=== PATIENT | female | born 1945 | race Caucasian/White ===

== ENCOUNTER 2016-11-29 09:17 | Inpatient (IN) | payer OTHER, MEDICARE ==
[2016-11-29] VITALS (9 sets, daily range): BP systolic 82–193; BP diastolic 56–110; PULSE 75–95; RESP 16–20; TEMP 97.5–99.3; O2SAT 92–99
[~2016-11-29] VITALS: Ht 167.6 cm; Wt 43.0 kg
[~2016-11-29 09:17] MED LIST: BACT800T5 PO; CEPH500C3 PO; GABA100C4 PO; IBUP800 PO; METH4PAK PO; NEUR100C PO; ZOLO50TA PO
--- NOTE | 2016-11-29 09:39 | PD ---
HPI Chief Complaint: Hip Injury Time Seen by Provider: 09:30 Travel History International Travel<30 days: No Contact w/Intl Traveler<30days: No Traveled to known affect area: No History of Present Illness HPI Patient is a 71-year-old female who presents emergency department via EMS for left hip pain. The patient states she was walking her dog last night and the family room, when she tripped and fell. The patient landed on her left side and was unable to ambulate after the fall. The patient states she was able to crawl to the door this morning where she banged on the door and some bystanders helped her. The patient states she is unable to straighten her left lower extremity or bear weight on the left leg. The patient does have a history of previous right hip fracture which she states was fixed by Dr. Rojas. The patient denies any head trauma or loss of consciousness with the fall. The patient denies any current headache, neck pain, chest pain, short of breath, nausea, vomiting, or abdominal pain. The patient does complain of left hip pain that radiates into the left leg, moderate, worse with movement, and mildly alleviated with morphine 4 mg intravenously prior to arrival. The patient states her primary physician is Dr. Goldstein. [facility] Past Medical History Hx Anticoagulant Therapy: No Anxiety: Yes Cancer: No Cardiovascular Problems: No Diabetes: No Diminished Hearing: No Glaucoma: No Hepatitis: No Hiatal Hernia: No Hypertension: Yes Musculoskeletal: Yes (FX CLAVICLE) Neurologic: Yes (MULTIPLE SCLEROSIS) Respiratory: No Thyroid Disease: No ?: Not Menopausal: Yes : 4 Para: 2 : 2 Tubal Ligation: Yes Past Surgical History Abdominal Surgery: Yes (ABDOMINAL HERNIA REPAIR) Cardiac Surgery: No Ear Surgery: No Endocrine Surgery: No Eye Surgery: Yes (LEFT EYE CATARACT EXTRACT) Genitourinary Surgery: No Gynecologic Surgery: Yes (TUBAL LIGATION) Neurologic Surgery: No Oral Surgery: No Pacemaker: No Thoracic Surgery: No Tonsillectomy: Yes Other Surgery: Yes Social History Alcohol Use: Yes (WINE 3 GLASSES DAILY) Tobacco Use: No Substance Use: No Allergies-Medications (Allergen,Severity, Reaction): Coded Allergies: No Known Allergies (Verified , 11/29/16) Reported Meds & Prescriptions Reported Meds & Active Scripts Active Reported Pred Forte Opth Drops (Prednisolone Acetate Opth Drops) 1% Susp 1 Drop RIGHT EYE QID Boniva (Ibandronate Sodium) 150 Mg Tab 150 Mg PO MONTHLY Buspirone (Buspirone HCl) 5 Mg Tab 5 Mg PO DAILY Synthroid (Levothyroxine Sodium) 125 Mcg Tab 125 Mcg PO DAILY Gabapentin 100 Mg Cap 100 Mg PO TID Zoloft (Sertraline HCl) 50 Mg Tab 50 Mg PO DAILY Review of Systems Except as stated in HPI: all other systems reviewed are Neg General / Constitutional: No: Fever Eyes: Positive: 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 SKIN: Focused skin assessment warm/dry. HEAD: Atraumatic. Normocephalic. EYES: Left pupil is 3 mm and reactive. The right eye has a glaze appearance, she is unable to see out of the right eye. ENT: No nasal bleeding or discharge. Mucous membranes pink and moist. NECK: Trachea midline. No JVD. CARDIOVASCULAR: Regular rate and rhythm. No murmur appreciated. RESPIRATORY: No accessory muscle use. Clear to auscultation. Breath sounds equal bilaterally. GASTROINTESTINAL: Abdomen soft, non-tender, nondistended. No rebound tenderness. MUSCULOSKELETAL: The left lower extremity shortened and externally rotated. Positive dorsalis pedal pulses bilateral. The patient is able to move the feet bilaterally. NEUROLOGICAL: Awake and alert. No obvious cranial nerve deficits. Motor grossly within normal limits. Normal speech. A note 4. Follows commands. Sensation is intact left lower extremity. PSYCHIATRIC: Appropriate mood and affect; insight and judgment normal. Data Data Last Documented VS Vital Signs Date Time Temp Pulse Resp B/P Pulse Ox O2 Delivery O2 Flow Rate FiO2 11/29/16 10:30 79 18 145/79 98 Nasal Cannula 2 11/29/16 09:25 97.5 Orders Electrocardiogram (11/29/16 09:31) Complete Blood Count With Diff (11/29/16 09:31) Comprehensive Metabolic Panel (11/29/16 09:31) Prothrombin Time / Inr (Pt) (11/29/16:31) Act Partial Throm Time (Ptt) (11/29/16:31) Urinalysis - C+S If Indicated (11/29/16:31) Type And Screen (11/29/16:31) Chest, Single Ap (11/29/16:31) Hip, Uni(Ap&Lat) W Ap Pelvis (11/29/16:31) Iv Access Insert/Monitor (11/29/16:31) Urinary Catheter Insert/Apply (11/29/16:31) Oximetry (11/29/16:31) Ice/Cold Pack (11/29/16:) Ecg Monitoring (11/29/16:31) Morphine Inj (Morphine Inj) (11/29/16 09:45) Ondansetron Inj (Zofran Inj) (11/29/16 09:45) Sodium Chloride 0.9% Flush (Ns Flush) (11/29/16 09:45) Sodium Chlor 0.9% 1000 Ml Inj (Ns 1000 M (11/29/16 09:45) Buspirone (Buspar) (11/30/16 09:00) Gabapentin (Neurontin) (11/29/16 13:00) Levothyroxine (Synthroid) (11/30/16 09:00) Sertraline (Zoloft) (11/30/16 09:00) Admit Order (Ed Use Only) (11/29/16 10:44) Labs Laboratory Tests Test 11/29/16 11/29/16 09:45 10:00 White Blood Count 9.7 TH/MM3 Red Blood Count 3.95 MIL/MM3 Hemoglobin 13.0 GM/DL Hematocrit 38.3 % Mean Corpuscular Volume 97.1 FL Mean Corpuscular Hemoglobin 33.0 PG Mean Corpuscular Hemoglobin 33.9 % Concent Red Cell Distribution Width 13.4 % Platelet Count 236 TH/MM3 Mean Platelet Volume 8.9 FL Neutrophils (%) (Auto) 72.1 % Lymphocytes (%) (Auto) 13.8 % Monocytes (%) (Auto) 13.5 % Eosinophils (%) (Auto) 0.1 % Basophils (%) (Auto) 0.5 % Neutrophils # (Auto) 7.0 TH/MM3 Lymphocytes # (Auto) 1.3 TH/MM3 Monocytes # (Auto) 1.3 TH/MM3 Eosinophils # (Auto) 0.0 TH/MM3 Basophils # (Auto) 0.0 TH/MM3 CBC Comment DIFF FINAL Differential Comment Prothrombin Time 10.6 SEC Prothromb Time International 1.0 RATIO Ratio Activated Partial 21.9 SEC Thromboplast Time Blood Type A POSITIVE Antibody Screen NEGATIVE Blood Bank Comment Urine Color YELLOW Urine Turbidity CLEAR Urine pH 5.0 Urine Specific [place] 1.016 Urine Protein TRACE mg/dL Urine Glucose (UA) NEG mg/dL Urine Ketones TRACE mg/dL Urine Occult Blood NEG Urine Nitrite NEG Urine Bilirubin NEG Urine Urobilinogen LESS THAN 2.0 MG/DL Urine Leukocyte Esterase NEG Urine RBC LESS THAN 1 /hpf Urine WBC 1 /hpf Microscopic Urinalysis Comment CATH-CULT NOT IND MDM Medical Decision Making Medical Screen Exam Complete: Yes Emergency Medical Condition: Yes Medical Record Reviewed: Yes Interpretation(s) EKG reveals normal sinus rhythm with a rate of 76. No ischemic changes or ectopy noted. Last Impressions Hip and Pelvis X-Ray 11/29/16930 Signed Impressions: Service Date/Time: Tuesday, November 29, 2016 09:56 - CONCLUSION: Comminuted left femoral fracture. Ciro Joseph MD Chest X-Ray 11/29/16930 Signed Impressions: Service Date/Time: Tuesday, November 29, 2016 09:56 - CONCLUSION: No acute disease. Ciro Joseph MD Laboratory Tests Test 11/29/16 11/29/16 09:45 10:00 White Blood Count 9.7 TH/MM3 Red Blood Count 3.95 MIL/MM3 Hemoglobin 13.0 GM/DL Hematocrit 38.3 % Mean Corpuscular Volume 97.1 FL Mean Corpuscular Hemoglobin 33.0 PG Mean Corpuscular Hemoglobin 33.9 % Concent Red Cell Distribution Width 13.4 % Platelet Count 236 TH/MM3 Mean Platelet Volume 8.9 FL Neutrophils (%) (Auto) 72.1 % Lymphocytes (%) (Auto) 13.8 % Monocytes (%) (Auto) 13.5 % Eosinophils (%) (Auto) 0.1 % Basophils (%) (Auto) 0.5 % Neutrophils # (Auto) 7.0 TH/MM3 Lymphocytes # (Auto) 1.3 TH/MM3 Monocytes # (Auto) 1.3 TH/MM3 Eosinophils # (Auto) 0.0 TH/MM3 Basophils # (Auto) 0.0 TH/MM3 CBC Comment DIFF FINAL Differential Comment Prothrombin Time 10.6 SEC Prothromb Time International 1.0 RATIO Ratio Activated Partial 21.9 SEC Thromboplast Time Blood Type A POSITIVE Antibody Screen NEGATIVE Blood Bank Comment Urine Color YELLOW Urine Turbidity CLEAR Urine pH 5.0 Urine Specific [place] 1.016 Urine Protein TRACE mg/dL Urine Glucose (UA) NEG mg/dL Urine Ketones TRACE mg/dL Urine Occult Blood NEG Urine Nitrite NEG Urine Bilirubin NEG Urine Urobilinogen LESS THAN 2.0 MG/DL Urine Leukocyte Esterase NEG Urine RBC LESS THAN 1 /hpf Urine WBC 1 /hpf Microscopic Urinalysis Comment CATH-CULT NOT IND Differential Diagnosis Differential diagnosis includes hip fracture, pelvic fracture, hip dislocation, hip contusion, femur fracture, mechanical fall, syncope. Narrative Course IV was established, labs are drawn and sent, and the patient was placed on cardiac telemetry monitoring and continuous pulse oximetry monitoring. EKG was ordered and interpreted. Chest x-ray and pelvis x-ray/left hip x-ray were obtained. The patient was administered morphine and Zofran intravenously with IV fluids. X-ray of the left hip reveals a fracture of the proximal left femur at the level of the trochanters. Chest x-rays unremarkable. A call was placed to the patient's orthopedic surgeon, Dr. Rojas, as well as [facility] ([place], [place])ist for admission. I discussed the patient Dr. Giordano who agrees with admission. The patient was reevaluated at 10:40 AM, her her left hip pain has significantly improved. Physician Communication Physician Communication I discussed the patient Dr. Giordano who agrees with admission. Diagnosis Primary Impression: Closed left hip fracture Qualified Code: S72.002A - Closed left hip fracture, initial encounter Admitting Information Admitting Physician Requests: Admit Condition: Stable Francis Granados MD Nov 29, 2016 09:38
[2016-11-29] MEDS: SODIUM CHLORIDE 0.9% FLUSH 10 ML FLUSH IVF PRN ×3 (09:42→22:57)
[2016-11-29] MEDS ORDERED: MORPHINE SULFATE 4 MG/ML INJ IV PUSH ONE (09:45)
[2016-11-29] MEDS ORDERED: SODIUM CHLOR 0.9% 1000 ML INJ 1,000 ML IV SCH (09:45)
[2016-11-29] MEDS ORDERED: ONDANSETRON HCL 4 MG/2 ML VIAL IVP ONE (09:45)
[2016-11-29] MEDS ORDERED: BUSP5TAB PO (09:50)
[2016-11-29] MEDS ORDERED: LEVO.125 PO (09:50)
[2016-11-29] MEDS ORDERED: ZOLO50TA PO (09:50)
[2016-11-29] MEDS ORDERED: GABA100C4 PO (09:50)
[2016-11-29 10:18] LABS: BASOPHIL % 0.5 % (0.0-2.0); EOSINOPHIL % 0.1 % (0.0-4.0); HEMATOCRIT 38.3 % (35.0-46.0); HEMO FLAGS DIFF FINAL; LYMPH % 13.8 % (9.0-44.0); LYMPHOCYTE # 1.3 TH/MM3 (1.0-4.8); MEAN CELL VOLUME 97.1 FL (80.0-100.0); MEAN CORPUSCULAR HGB CONC 33.9 % (32.0-36.0); MONO % 13.5 % (0.0-8.0); NEUT % 72.1 % (16.0-70.0); PLATELET COUNT 236 TH/MM3 (150-450); RED BLOOD COUNT 3.95 MIL/MM3 (4.00-5.30); RED CELL DISTRIBUTION WIDTH 13.4 % (11.6-17.2); WHITE BLOOD COUNT 9.7 TH/MM3 (4.0-11.0)
--- NOTE | 2016-11-29 10:21 | RADRPT ---
EXAM DATE/TIME: 11/29/2016 09:56 [facility] COMPARISON: No previous studies available for comparison. INDICATIONS : Fell last night. MEDICAL HISTORY : None. SURGICAL HISTORY : None. ENCOUNTER: Initial ACUITY: 1 day PAIN SCORE: 0/10 LOCATION: Bilateral chest FINDINGS: A single view of the chest demonstrates the lungs to be symmetrically aerated without evidence of mas s, infiltrate or effusion. The cardiomediastinal contours are unremarkable. Osseous structures are intact. CONCLUSION: No acute disease. Ciro Joseph MD on November 29, 2016 at 10:20 Board Certified Radiologist. This report was verified electronically.
--- NOTE | 2016-11-29 10:22 | RADRPT ---
EXAM DATE/TIME: 11/29/2016 09:56 [facility] COMPARISON: No previous studies available for comparison. INDICATIONS : Fell last night, left hip pain MEDICAL HISTORY : None. SURGICAL HISTORY : broke right hip 2 years ago. ENCOUNTER: Initial ACUITY: 1 day PAIN SCORE: 10/10 LOCATION: Left hip and pelvis FINDINGS: Comminuted and displaced fracture of the left proximal femur at the level of the trochanters is ident ified. There are 3 threaded pins noted across the right femoral neck. CONCLUSION: Comminuted left femoral fracture. Ciro Joseph MD on November 29, 2016 at 10:20 Board Certified Radiologist. This report was verified electronically.
[2016-11-29 10:25] LABS: APTT (PATIENT) 21.9 SEC (24.3-30.1); PROTHROMBIN TIME - PATIENT 10.6 SEC (9.8-11.6)
[2016-11-29 10:28] LABS: BLOOD, URINE NEG (NEG); COMMENT (UR) CATH-CULT NOT IND; CULTURE IF INDICATED CATH CULTURE NOT IND; GLUCOSE,URINE NEG (NEG); KETONE, URINE TRACE mg/dL (NEG); NITRITE,URINE NEG (NEG); URINE COLOR YELLOW (YELLW/STRAW)
[2016-11-29 10:42] LABS: ALKALINE PHOSPHATASE 64 U/L (45-117); TOTAL BILIRUBIN ADULT 0.9 MG/DL (0.2-1.0)
[2016-11-29] MEDS ORDERED: MAGNESIUM HYDROXIDE SUSP 30 ML CUP PO PRN (11:15)
[2016-11-29] MEDS ORDERED: ONDANSETRON HCL 4 MG/2 ML VIAL IVP PRN (11:15)
[2016-11-29] MEDS ORDERED: NALOXONE HCL 0.4 MG/ML AMP IV PRN (11:15)
[2016-11-29] MEDS ORDERED: MORPHINE SULFATE 4 MG/ML INJ IV PRN (11:15)
[2016-11-29] MEDS ORDERED: PRED1SUS RIGHT EYE (11:32)
[2016-11-29] MEDS ORDERED: BONI150T PO (11:32)
--- NOTE | 2016-11-29 11:35 | HHI.HP ---
cc: Jessica Goldstein MD [facility] Service [facility] Primary [facility] Physician Jessica Goldstein MD Admission Diagnosis left hip fracture Diagnoses: (1) Closed left hip fracture (2) Hypothyroidism (3) Post herpetic neuralgia (4) Blind right eye Chief Complaint: Fall, hip pain Travel History International Travel<30 Days: No Contact w/Intl Traveler <30 Da: No Traveled to Known Affected Are: No History of Present Illness The patient is a 71-year-old female who presented to the emergency department following a fall that occurred last night. She states that she was in her family room preparing to walk her dog late last night and lost her balance and fell. She landed on her left side and immediately had pain in her left hip. She was unable to get back to her feet and eventually was able to crawl to the door. Bystanders heard her banging on her door and were able to help her contact EMS. Pain is currently well controlled. Patient denies hitting her head. No loss of consciousness associated with the fall. No dizziness, lightheadedness, chest pain, dyspnea. Review of Systems Constitutional: DENIES: Fever, Chills, Night Sweats Eyes: DENIES: Blurred vision, Vision loss Ears, nose, mouth, throat: DENIES: Hearing loss Respiratory: DENIES: Cough, Wheezing, Sputum production, Shortness of breath Cardiovascular: DENIES: Chest pain, Palpitations, Dyspnea on Exertion, Lower Extremity Edema Gastrointestinal: DENIES: Abdominal pain, Constipation, Diarrhea, Nausea, Vomiting Genitourinary: DENIES: Urinary frequency, Urinary incontinence, Urgency, Hematuria, Dysuria, Nocturia Musculoskeletal: COMPLAINS OF: Joint pain, DENIES: Muscle aches Integumentary: DENIES: Pruritus, Rash Hematologic/lymphatic: DENIES: Bruising Neurologic: DENIES: Headache Past Family Social History Past Medical History Hypothyroidism Posthepatic neuralgia, right forehead History of shingles affecting the right forehead and right eye with resultant right eye blindness Anxiety Past Surgical History Abdominal hernia repair Left eye cataract surgery Tubal ligation Tonsillectomy Right hip fracture repair Reported Medications Buspirone (Buspirone HCl) 5 Mg Tab 5 Mg PO DAILY Synthroid (Levothyroxine Sodium) 125 Mcg Tab 125 Mcg PO DAILY Gabapentin 100 Mg Cap 100 Mg PO TID Zoloft (Sertraline HCl) 50 Mg Tab 50 Mg PO DAILY Allergies: Coded Allergies: No Known Allergies (Verified , 11/29/16) Family History Denies Social History Quit smoking 7 years ago. Drinks 1 glass of wine and 1 glass of bourbon every night. Denies illicit drug use. Physical Exam Vital Signs Vital Signs Date Time Temp Pulse Resp B/P Pulse Ox O2 Delivery O2 Flow Rate FiO2 11/29/16 09:51 Room Air 11/29/16 09:40 84 18 148/80 92 Nasal Cannula 2 11/29/16 09:25 97.5 92 18 193/110 95 Physical Exam GENERAL: Elderly female in no acute distress. HEENT: Normocephalic, atraumatic. Oropharynx is clear. Mucous membranes are moist. CARDIOVASCULAR: Regular rate and rhythm without murmurs, gallops, or rubs. RESPIRATORY: Clear to auscultation. No wheezes, rales, or rhonchi. Breathing is non-labored. GASTROINTESTINAL: Abdomen soft, non-tender, nondistended. EXTREMITIES: No lower extremity edema. No calf tenderness. Left leg is shortened and externally rotated. PSYCH: Alert and oriented x 3. Laboratory Laboratory Tests Test 11/29/16 11/29/16 11/29/16 09:45 10:00 11:15 White Blood Count 9.7 Red Blood Count 3.95 Hemoglobin 13.0 Hematocrit 38.3 Mean Corpuscular Volume 97.1 Mean Corpuscular Hemoglobin 33.0 Mean Corpuscular Hemoglobin 33.9 Concent Red Cell Distribution Width 13.4 Platelet Count 236 Mean Platelet Volume 8.9 Neutrophils (%) (Auto) 72.1 Lymphocytes (%) (Auto) 13.8 Monocytes (%) (Auto) 13.5 Eosinophils (%) (Auto) 0.1 Basophils (%) (Auto) 0.5 Neutrophils # (Auto) 7.0 Lymphocytes # (Auto) 1.3 Monocytes # (Auto) 1.3 Eosinophils # (Auto) 0.0 Basophils # (Auto) 0.0 CBC Comment DIFF FINAL Differential Comment Prothrombin Time 10.6 Prothromb Time International 1.0 Ratio Activated Partial 21.9 Thromboplast Time Blood Type A POSITIVE Antibody Screen NEGATIVE Blood Bank Comment Urine Color YELLOW Urine Turbidity CLEAR Urine pH 5.0 Urine Specific [place] 1.016 Urine Protein TRACE Urine Glucose (UA) NEG Urine Ketones TRACE Urine Occult Blood NEG Urine Nitrite NEG Urine Bilirubin NEG Urine Urobilinogen LESS THAN 2.0 Urine Leukocyte Esterase NEG Urine RBC LESS THAN 1 Urine WBC 1 Microscopic Urinalysis Comment CATH-CULT NOT IND Total Bilirubin 0.9 Alkaline Phosphatase 64 Total Protein 7.0 Result Diagram: 11/29/16944 Imaging Last Impressions Hip and Pelvis X-Ray 11/29/16930 Signed Impressions: Service Date/Time: Tuesday, November 29, 2016 09:56 - CONCLUSION: Comminuted left femoral fracture. Ciro Joseph MD Chest X-Ray 11/29/16930 Signed Impressions: Service Date/Time: Tuesday, November 29, 2016 09:56 - CONCLUSION: No acute disease. Ciro Joseph MD Assessment and Plan Assessment and Plan 1. Left hip fracture status post mechanical fall: Orthopedic surgery consult. Continue pain control. Patient will likely need surgical repair. Nothing by mouth. 2. Hypothyroidism: Continue Synthroid. 3. Postherpetic neuralgia: Patient had shingles affecting the right side of her face in 2014. She has resultant right eye blindness. Continue gabapentin for pain control. 4. Anxiety: Continue Zoloft, BuSpar. 5. DVT prophylaxis: SCDs, ESTEPHANIE calderón. Avoid chemical prophylaxis in anticipation of surgery. Problem Qualifiers (1) Closed left hip fracture: Qualified Code: S72.002A - Closed left hip fracture, initial encounter Sergo Giordano MD Nov 29, 2016 11:35
[2016-11-29 11:51] LABS: ALT (GPT) 21 U/L (10-53); ANION GAP 7 MEQ/L (5-15); AST (GOT) 26 U/L (15-37); BICARBONATE 27.7 MEQ/L (21.0-32.0); BLOOD UREA NITROGEN 17 MG/DL (7-18); CHLORIDE 104 MEQ/L (98-107); GLOMERULAR FILTRATION RATE 80 ML/MIN (>89); SODIUM (NA) 139 MEQ/L (136-145)
--- NOTE | 2016-11-29 12:25 | EKG ---
Date Performed: 11/29/2016 Time Performed: 10:20:29 PTAGE: 71 years EKG: Sinus rhythm NORMAL ECG PREVIOUS TRACING : 11/17/2009 20.38 DOCTOR: Christian Collins Interpretating Date/Time 11/29/2016 12:23:47
[2016-11-29] MEDS: GABAPENTIN 100 MG CAP PO SCH ×3 (13:00→18:38)
[2016-11-29] MEDS: SODIUM CHLOR 0.9% 1000 ML INJ 1,000 ML IV SCH (13:27)
[2016-11-29] MEDS: MORPHINE SULFATE 4 MG/ML INJ IV PRN ×3 (14:05→22:57)
[2016-11-29] MEDS: prednisoLONE ACETATE 1% OPHT SUSP 5 ML BTL RIGHT EYE SCH ×2 (18:39→21:00)
[2016-11-29] MEDS ORDERED: SODIUM CHLORID 0.9% 500 ML IV PRN (23:30)
[2016-11-29] MEDS ORDERED: POVIDONE IODINE 5% (ANTISEPSIS KIT) 4 APPLICATIONS EACH NARE PRN (23:30)
[2016-11-29] MEDS ORDERED: LACTATED RINGER'S 1000 ML IV PRN (23:30)
[2016-11-29] MEDS ORDERED: METOPROLOL TARTRATE 25 MG TAB PO PRN (23:30)
[2016-11-29] MEDS ORDERED: INSULIN HUMAN REGULAR 1,000 UNITS/10 ML VIAL SQ PRN (23:30)
[2016-11-29] MEDS ORDERED: CHLORHEXIDINE GLUCONATE 2 % 1 PACK (2 CLOTHS) TOPICAL PRN (23:30)
[2016-11-30 04:14] VITALS: BP 105/65; PULSE 89; RESP 17; TEMP 98.6; O2SAT 95
[2016-11-30] MEDS: MORPHINE SULFATE 4 MG/ML INJ IV PRN (04:38)
[2016-11-30] MEDS ORDERED: GENTAMICIN SULFATE 80 MG/2 ML VIAL ONE ×3 (06:51→09:08)
[2016-11-30] MEDS ORDERED: VANCOMYCIN HCL 1000 MG VIAL ONE ×2 (06:51→08:52)
[2016-11-30] MEDS ORDERED: BUPIVACAINE/EPINEPHRINE 0.25% PF 10 ML VIAL ONE (06:51)
[2016-11-30] MEDS ORDERED: SODIUM CHLOR 0.9% 250 ML INJ 250 ML ONE ×2 (06:52→08:53)
[2016-11-30] MEDS ORDERED: MIDAZOLAM HCL 2 MG/2 ML VIAL ONE (07:03)
[2016-11-30] MEDS ORDERED: ACETAMINOPHEN 1000 MG/100 ML VIAL IV ONE (07:03)
[2016-11-30] MEDS ORDERED: DEXAMETHASONE SOD PHOS 4 MG/ML VIAL ONE (07:04)
[2016-11-30] MEDS ORDERED: fentaNYL CITRATE 250 MCG/5 ML AMP ONE (07:04)
[2016-11-30] MEDS: SODIUM CHLOR 0.9% 1000 ML INJ 1,000 ML IV SCH (07:09)
--- NOTE | 2016-11-30 07:12 | PD.ORT.PN ---
Subjective Subjective Remarks s/p fall at home left hip pain. no other compalints. Objective Vitals Vital Signs Date Time Temp Pulse Resp B/P Pulse Ox O2 Delivery O2 Flow Rate FiO2 11/30/16 04:14 98.6 89 17 105/65 95 11/29/16 23:30 99.3 92 17 82/77 92 11/29/16 19:11 97.5 95 20 106/57 95 11/29/16 16:03 98.7 81 18 112/56 95 11/29/16 14:10 18 11/29/16 14:05 98.1 75 16 149/74 99 11/29/16 13:50 78 18 118/63 94 Nasal Cannula 2 11/29/16 12:00 19 141/82 94 Nasal Cannula 2 11/29/16 10:30 79 18 145/79 98 Nasal Cannula 2 11/29/16 09:51 Room Air 11/29/16 09:40 84 18 148/80 92 Nasal Cannula 2 11/29/16 09:25 97.5 92 18 193/110 95 I/O 11/29/16 11/29/16 11/29/16 11/30/16 11/30/16 11/30/16 07:00 15:00 23:00 07:00 15:00 23:00 Intake Total 120 ml Output Total 200 ml Balance -80 ml Intake Oral 120 ml Output Urine Total 200 ml # Bowel Movements 0 Result Diagram: 11/29/16 0945 11/29/16 1115 Other Results Laboratory Tests Test 11/29/16 09:45 Prothrombin Time 10.6 SEC (9.8-11.6) Prothromb Time International 1.0 RATIO Ratio Imaging Last 24 hours Impressions Hip and Pelvis X-Ray 11/29/16930 Signed Impressions: Service Date/Time: Tuesday, November 29, 2016 09:56 - CONCLUSION: Comminuted left femoral fracture. Ciro Joseph MD Chest X-Ray 11/29/16930 Signed Impressions: Service Date/Time: Tuesday, November 29, 2016 09:56 - CONCLUSION: No acute disease. Ciro Joseph MD Objective Remarks LLE: externally rotated. NVI Assessment & Plan Assessment and Plan 1) Left Intertroch hip fx -NPO -consents -surgery today Martínez Nam Nov 30, 2016 07:12
[2016-11-30] MEDS ORDERED: WALKER/ADULT/FO1 MIS (07:14)
[2016-11-30] MEDS ORDERED: HYDR-3288 PO (07:14)
[2016-11-30] MEDS ORDERED: CALCTAB19 PO (07:14)
[2016-11-30] MEDS ORDERED: ERGO1CAP30 PO (07:14)
[2016-11-30] MEDS ORDERED: VITA2000 PO (07:14)
[2016-11-30] MEDS ORDERED: XARE10TA PO (07:14)
[2016-11-30] MEDS ORDERED: ACETAMINOPHEN/HYDROcodone 325 MG/7.5 MG TAB PO PRN (07:30)
[2016-11-30] MEDS ORDERED: MORPHINE SULFATE 4 MG/ML INJ IV PUSH PRN (07:30)
[2016-11-30] MEDS ORDERED: SODIUM CHLORIDE 0.9% FLUSH 5 ML FLUSH IVF PRN (07:30)
[2016-11-30] MEDS ORDERED: ceFAZolin INJ 1,000 MG VIAL IV ONE (07:34)
--- NOTE | 2016-11-30 07:46 | MB ---
cc: EDGARDO GIORDANOALLKATHERIN DATE OF CONSULTATION: 11/30/2016 REASON FOR CONSULTATION Left hip intertrochanteric fracture. CONSULTING PHYSICIAN Dr. Giordano HISTORY OF PRESENT ILLNESS Ondina is a 71-year-old female who had a fall. She was at home preparing to walk her dog. She lost her balance and fell. She landed on her left hip. She had immediate left hip pain. She was unable to stand or ambulate. She was able to call for help. She was brought to the emergency room via EMS. X-rays reveal a left hip intertrochanteric fracture. She is currently awake and alert on the orthopedic floor. Her only complaint is her left hip. Pain is worse with movement and is improved with rest. PAST MEDICAL HISTORY ILLNESSES 1. Hypothyroidism. 2. Shingles. 3. Anxiety. SURGERIES 1. Hernia repair. 2. Cataract surgery. 3. Tubal ligation. 4. Right hip ORIF. MEDICATIONS 1. Buspirone. 2. Synthroid. 3. Gabapentin. 4. Zoloft. ALLERGIES None. FAMILY HISTORY Noncontributory. SOCIAL HISTORY The patient quit smoking seven years ago. She drinks wine daily. She denies drug use. REVIEW OF SYSTEMS The patient denies headache, visual changes, neck pain, chest pain, shortness of breath, abdominal pain, nausea, vomiting or recent weight loss. She complains of left hip pain. Pain is worse with movement. PHYSICAL EXAMINATION GENERAL: The patient is a well-developed thin 71-year-old female in no acute distress. She is awake and alert. She is alert and oriented x3. VITAL SIGNS: Temperature 98.6, pulse 89, respirations 17, blood pressure 105/65. O2 sat is 95% on room air. HEAD: The patient is normocephalic. Pupils are equal. NECK: Soft, nontender. Trachea is midline. ABDOMEN: Soft, nontender, nondistended. EXTREMITIES: Examination of bilateral upper extremities reveals no significant pain with shoulder, elbow or wrist motion. She has intact sensation in all fingers. She has good capillary refill in all fingers. Skin is intact. Radial pulses are palpable. Examination of right leg reveals no pain with hip, knee or ankle motion. Skin is intact. Dorsalis pedis pulse is palpable. Examination of left leg reveals pain with any hip motion. She is diffusely tender around the greater trochanter. She has no tenderness around her knee, tibia or ankle. Skin is intact. Dorsalis pedis pulse is palpable. X-RAYS X-rays of the left hip were reviewed. X-rays reveal a displaced left hip intertrochanteric fracture. IMPRESSION 1. Osteoporosis. 2. Displaced left hip intertrochanteric fracture. PLAN The treatment options were discussed with the patient. At this point I would recommend left hip reduction and intramedullary nail fixation. The risks of surgery include bleeding, infection, injuries to arteries, nerves and blood vessels, nonunion, malunion, painful hardware, trochanteric bursitis as well as medical complications including blood clot, stroke, heart attack and . All questions were answered. I will plan on surgery today. A mid-level provider in my office (nurse practitioner or physician commercial assistant) may see this patient on follow-up visits and continue to implement the objectives of this plan including: Starting or adjusting medications, injections , cast application, orthotics, brace application, physical therapy, radiological studies (including x-ray, MRI, CT, ultrasound, bone scan), vascular studies, neurologic studies, specialist consultation, and proceeding with surgical management, as appropriate. MD DELMI Montoya/DARY /7:24 AM /7:32 AM MTDDesean
--- NOTE | 2016-11-30 08:07 | PD.OP ---
cc: Krishna Vasques MD Operative Report Date of Surgery: Nov 30, 2016 Preoperative Diagnosis: Left hip intertrochanteric fracture Postoperative Diagnosis: Procedure: Left hip reduction and intramedullary nail fixation Anesthesia: Gen. Surgeon: Krishna Vasques Oil Burner(s): JEFFERY Barney PA-C The surgical procedure was assisted by my physician project assistant. My P.A. presence was necessary throughout this case for the manipulation and positioning of the surgical extremity. My P.A. was assisting me throughout the duration of this procedure. The skill set of a physician project assistant was medically necessary to complete this procedure. During the surgical case the surgical clinical reviewer was working at the back table and the physician project assistant was directly assisting me. Operation and Findings: Implants used: 10 mm 125 Synthes TFNA intermediate troch nail Plan of activity: Weight-bear as tolerated Patient was seen and evaluated preoperatively. The patient has significant hip pain from left intertrochanteric hip fracture. The risk and benefits of surgery were discussed in depth with the patient to include bleeding infection nonunion malunion and need for hip replacement painful hardware as well as medical competitions including but not stroke heart attack and . Informed consent was obtained. Operative site was marked. Patient was brought to the operating room and placed on fracture table. IV sedation was administered by anesthesiologist. Timeout procedure was performed. Hip and leg were prepped with alcohol followed by DuraPrep and draped in the usual sterile fashion. IV antibiotics were given prior to incision. Procedure began with reduction of fracture. Traction was applied. The leg was manipulated to achieve reduction. Excellent reduction was achieved. Fluoroscopy was used to confirm reduction. A three inch incision was made proximal to the trochanter. Subcutaneous tissue was dissected bluntly. Guidepin was placed at the tip of the trochanter and advanced into the femoral canal. Fluoroscopy confirmed appropriate guidepin placement. A opening reamer was placed over the guidepin. The Synthes TFNA nail was attached to the insertion handle. Nail was now placed through the tip of the trochanter into the femoral canal. Fluoroscopy confirmed appropriate nail placement. A second incision was made over the lateral thigh. Cannulas were placed through the insertion handle down to the femur. Guidepin was now placed through the femoral nail into the center of the femoral head. Fluoroscopy confirmed appropriate guidepin placement. Screw length was measured. Cannulated drill was placed over the guidepin. Appropriate length lag screw was now placed. Traction was released and compression was applied. The set screw was now tightened in dynamic mode. Using the insertion handle as a guide a distal interlocking screw was drilled and placed. Final fluoroscopy revealed well aligned fracture with well-placed hardware. Incision was closed with 3-0 Vicryl and joselito. Sterile dressings were applied. Patient was awakened and transferred to recovery room. Krishna Vasques MD Nov 30, 2016 08:07
[2016-11-30] MEDS ORDERED: ceFAZolin INJ 1,000 MG VIAL ONE (08:52)
[2016-11-30] MEDS: CALCIUM/VITAMIN D 250 MG/125 U TAB PO SCH ×3 (09:00→17:53)
[2016-11-30] MEDS: SODIUM CHLORIDE 0.9% FLUSH 5 ML FLUSH IVF SCH ×2 (09:00→21:00)
[2016-11-30] MEDS ORDERED: ERGOCALCIFEROL (VIT D2) 50,000 UNIT CAP PO ONE (09:00)
[2016-11-30] MEDS: GABAPENTIN 100 MG CAP PO SCH ×3 (09:00→17:53)
[2016-11-30] MEDS: CHOLECALCIFEROL (VIT D3) 5000 UNIT CAP PO SCH (09:00)
[2016-11-30] MEDS ORDERED: *RESP: ALBUTEROL 2.5 MG/3 ML NEB (PRN) PERIprocedural Use ONLY NEB ONE (09:35)
[2016-11-30 10:00] VITALS: BP 109/67; PULSE 84; RESP 16; TEMP 97.1; O2SAT 94
[2016-11-30] MEDS ORDERED: DO NOT ADM ANY ANTICOAGULANT DRUGS PRN (10:45)
[2016-11-30] MEDS: busPIRone HCL 5 MG TAB PO SCH (11:07)
[2016-11-30] MEDS: SERTRALINE HCL 50 MG TAB PO SCH (11:08)
[2016-11-30] MEDS: prednisoLONE ACETATE 1% OPHT SUSP 5 ML BTL RIGHT EYE SCH ×4 (11:08→23:01)
[2016-11-30] MEDS: LEVOTHYROXINE SODIUM 125 MCG TAB PO SCH (11:16)
[2016-11-30 12:00] VITALS: BP 96/63; PULSE 88; RESP 16; TEMP 98; O2SAT 97
[2016-11-30] MEDS ORDERED: PHENYLEPH/NS 1000 MCG/10 ML SYR IV ONE (12:00)
[2016-11-30] MEDS ORDERED: PROPOFOL 200 MG/20 ML AMP IV ONE (12:00)
[2016-11-30] MEDS ORDERED: FLUMAZENIL 1 MG/10 ML VIAL IV ONE (12:00)
--- NOTE | 2016-11-30 13:34 | RADRPT ---
EXAM DATE/TIME: 11/30/2016 07:57 [facility] COMPARISON: HIP LEFT (AP&LAT 2/3VWS) W AP PELVIS, November 29, 2016, 9:56. INDICATIONS : ORIF left hip troch nail. MEDICAL HISTORY : None. SURGICAL HISTORY : None. ENCOUNTER: Subsequent ACUITY: 2 days PAIN SCORE: Non-responsive. LOCATION: Left hip. FINDINGS: 4 spot intraoperative fluoroscopic views of the left hip demonstrate intramedullary ride and trochant er now fixation of the left proximal femur with good alignment of the trochanteric fracture fragments . CONCLUSION: ORIF left hip fractures. Ciro Joseph MD on November 30, 2016 at 13:32 Board Certified Radiologist. This report was verified electronically.
--- NOTE | 2016-11-30 14:30 | HHI.PR ---
Subjective Remarks Follow-up hip pain, postherpetic neuralgia, anxiety. Patient has no complaints at this time. Pain is well controlled. Denies chest pain, dyspnea. Objective Vitals Vital Signs Date Time Temp Pulse Resp B/P Pulse Ox O2 Delivery O2 Flow Rate FiO2 11/30/16 12:00 98.0 88 16 96/63 97 11/30/16 10:00 97.1 84 16 109/67 94 11/30/16 09:40 98.3 78 15 129/81 100 Nasal Cannula 3 11/30/16 09:30 79 15 106/74 100 Nasal Cannula 3 11/30/16 09:15 94 15 106/72 100 Nasal Cannula 3 11/30/16 09:00 78 15 93/68 100 Nasal Cannula 3 11/30/16 08:45 81 15 101/72 100 Nasal Cannula 3 11/30/16 08:30 82 14 105/67 100 Nasal Cannula 3 11/30/16 08:23 98.5 87 14 122/76 100 Nasal Cannula 3 11/30/16 04:14 98.6 89 17 105/65 95 11/29/16 23:30 99.3 92 17 82/77 92 11/29/16 19:11 97.5 95 20 106/57 95 11/29/16 16:03 98.7 81 18 112/56 95 I/O 11/29/16 11/29/16 11/29/16 11/30/16 11/30/16 11/30/16 07:00 15:00 23:00 07:00 15:00 23:00 Intake Total 120 ml 1000 ml Output Total 200 ml 180 ml Balance -80 ml 820 ml Intake Oral 120 ml IV Total 400 ml Other 600 ml Output Urine Total 200 ml 130 ml Estimated Blood Loss 50 ml # Bowel Movements 0 Result Diagram: 11/29/16 0945 11/29/16 1115 Imaging Last Impressions Hip X-Ray 11/30/16 0000 Signed Impressions: Service Date/Time: Wednesday, November 30, 2016 07:57 - CONCLUSION: ORIF left hip fractures. Ciro Joseph MD Hip and Pelvis X-Ray 11/29/16 0931 Signed Impressions: Service Date/Time: Tuesday, November 29, 2016 09:56 - CONCLUSION: Comminuted left femoral fracture. Ciro Joseph MD Chest X-Ray 11/29/16 0931 Signed Impressions: Service Date/Time: Tuesday, November 29, 2016 09:56 - CONCLUSION: No acute disease. Ciro Joseph MD Objective Remarks General: Thin elderly female in no acute distress. Sitting up in a chair. Heart: Regular rate and rhythm. No murmur. Lungs: Clear to auscultation bilaterally. No wheezes, rales, or rhonchi. Breathing is nonlabored. Abdomen: Soft, nontender, nondistended. Extremities: No lower extremity edema. Psych: Alert and oriented. 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 Left hip fracture status post mechanical fall: Status post left hip reduction and intramedullary nail fixation, POD #0. Management per orthopedic surgery. Continue pain control, bowel regimen. Patient has been ambulating after the surgery. 2. Hypothyroidism: Continue Synthroid. 3. Postherpetic neuralgia: Patient had shingles affecting the right side of her face in 2014. She has resultant right eye blindness. Continue gabapentin for pain control. 4. Anxiety: Continue Zoloft, BuSpar. 5. DVT prophylaxis: SCDs, ESTEPHANIE calderón. Lovenox. Discharge Planning When cleared by orthopedic surgery. Problem Qualifiers (1) Closed left hip fracture: Qualified Code: S72.002A - Closed left hip fracture, initial encounter Sergo Giordano MD Nov 30, 2016 14:30
[2016-11-30 16:00] VITALS: BP 131/77; PULSE 85; RESP 16; TEMP 98.7; O2SAT 92
[2016-11-30] MEDS: DOCUSATE SODIUM 100 MG CAP PO SCH ×2 (17:54→23:00)
[2016-11-30] MEDS: ACETAMINOPHEN/HYDROcodone 325 MG/7.5 MG TAB PO PRN (18:14)
[2016-11-30 20:29] VITALS: BP 108/68; PULSE 98; RESP 18; TEMP 98.5; O2SAT 94
[2016-11-30 23:43] VITALS: BP 128/69; PULSE 93; RESP 18; TEMP 95.8; O2SAT 94
[2016-12-01] MEDS: SODIUM CHLOR 0.9% 1000 ML INJ 1,000 ML IV SCH (00:51)
[2016-12-01 04:05] VITALS: BP 121/67; PULSE 90; RESP 18; TEMP 96.8; O2SAT 93
[2016-12-01] MEDS: LEVOTHYROXINE SODIUM 125 MCG TAB PO SCH (05:02)
--- NOTE | 2016-12-01 07:03 | HHI.FF ---
Face to Face Verification Diagnosis: (1) Closed left hip fracture Physical Therapy Gait training, Safety evaluation Hip: Hip fracture, Protocol: Left Left LE Weight Bearing: WB as tolerated Nursing Dressing Changes: Xeroform, Coverderm/Primapore I have seen patient Ondina Soria on 12/01/16. My clinical findings support the need for the requested home health care services because: Limited ability to care for self I certify that my clinical findings support that this patient is homebound because: Post-op weakness Memo Varma Jr. Dec 01, 2016 07:03
--- NOTE | 2016-12-01 07:06 | PD.ORT.PN ---
Subjective Subjective Remarks Pain controlled. Is anxious to be able to go back home Objective Vitals Vital Signs Date Time Temp Pulse Resp B/P Pulse Ox O2 Delivery O2 Flow Rate FiO2 12/01/16 04:05 96.8 90 18 121/67 93 11/30/16 23:43 95.8 93 18 128/69 94 11/30/16 20:29 98.5 98 18 108/68 94 11/30/16 18:50 Room Air 11/30/16 16:00 98.7 85 16 131/77 92 11/30/16 12:00 98.0 88 16 96/63 97 11/30/16 10:00 97.1 84 16 109/67 94 11/30/16 09:40 98.3 78 15 129/81 100 Nasal Cannula 3 11/30/16 09:30 79 15 106/74 100 Nasal Cannula 3 11/30/16 09:15 94 15 106/72 100 Nasal Cannula 3 11/30/16 09:00 78 15 93/68 100 Nasal Cannula 3 11/30/16 08:45 81 15 101/72 100 Nasal Cannula 3 11/30/16 08:30 82 14 105/67 100 Nasal Cannula 3 11/30/16 08:23 98.5 87 14 122/76 100 Nasal Cannula 3 I/O 11/30/16 11/30/16 11/30/16 12/01/16 12/01/16 12/01/16 07:00 15:00 23:00 07:00 15:00 23:00 Intake Total 120 ml 1480 ml 360 ml 721 ml Output Total 200 ml 430 ml 100 ml 250 ml Balance -80 ml 1050 ml 260 ml 471 ml Intake Oral 120 ml 480 ml 360 ml 240 ml IV Total 400 ml 481 ml Other 600 ml Output Urine Total 200 ml 380 ml 100 ml 250 ml Estimated Blood Loss 50 ml # Bowel Movements 0 0 0 0 Result Diagram: 11/29/1645 11/29/16 1115 Imaging Last 24 hours Impressions Hip and Pelvis X-Ray 11/29/16930 Signed Impressions: Service Date/Time: Tuesday, November 29, 2016 09:56 - CONCLUSION: Comminuted left femoral fracture. Ciro Joseph MD Chest X-Ray 11/29/16930 Signed Impressions: Service Date/Time: Tuesday, November 29, 2016 09:56 - CONCLUSION: No acute disease. Ciro Joseph MD Objective Remarks LLE: Clean dry dressings intact. Distally neurovascularly intact Assessment & Plan Assessment and Plan 1) Left Intertroch hip fx IM nail POD 1 Daily dressing changes beginning POD2 Lovenox Plan for discharge today or tomorrow depending on physical therapy and medical With thickly cleared for discharge once safe Follow-up with Dr. Vasques or [place] in 2 weeks Memo Varma Jr. Dec 01, 2016 07:06
[2016-12-01] MEDS ORDERED: ENOXAPARIN SODIUM 30 MG/0.3 ML SYRINGE SQ SCH (07:20)
[2016-12-01 07:31] LABS: HEMATOCRIT 28.1 % (35.0-46.0); REVIEW FLAG FINAL
[2016-12-01 08:00] VITALS: BP 137/87; PULSE 91; RESP 18; TEMP 98.7; O2SAT 95
[2016-12-01] MEDS: prednisoLONE ACETATE 1% OPHT SUSP 5 ML BTL RIGHT EYE SCH ×2 (09:00→13:00)
[2016-12-01] MEDS: SODIUM CHLORIDE 0.9% FLUSH 5 ML FLUSH IVF SCH (09:00)
[2016-12-01] MEDS: GABAPENTIN 100 MG CAP PO SCH ×3 (10:01→17:13)
[2016-12-01] MEDS: DOCUSATE SODIUM 100 MG CAP PO SCH (10:02)
[2016-12-01] MEDS: CHOLECALCIFEROL (VIT D3) 5000 UNIT CAP PO SCH (10:02)
[2016-12-01] MEDS: SERTRALINE HCL 50 MG TAB PO SCH (10:02)
[2016-12-01] MEDS: busPIRone HCL 5 MG TAB PO SCH (10:02)
[2016-12-01] MEDS: CALCIUM/VITAMIN D 250 MG/125 U TAB PO SCH ×3 (10:02→17:13)
[2016-12-01 11:54] VITALS: BP 136/84; PULSE 96; RESP 18; TEMP 98; O2SAT 98
[2016-12-01] MEDS: ACETAMINOPHEN/HYDROcodone 325 MG/7.5 MG TAB PO PRN ×2 (14:05→17:16)
[2016-12-01 16:00] VITALS: BP 115/75; PULSE 91; RESP 18; TEMP 97.1; O2SAT 93
--- NOTE | 2016-12-01 17:43 | HHI.DS ---
Discharge Summary Admission Date Nov 29, 2016 at 10:46 Discharge Date: Dec 01, 2016 Admitting Diagnosis left hip fracture (1) Closed left hip fracture ICD Code: S72.002A (2) Hypothyroidism ICD Code: E03.9 (3) Post herpetic neuralgia ICD Code: B02.29 (4) Blind right eye ICD Code: H54.41 Procedures 11/30/16 Left hip reduction and intramedullary nail fixation Brief History - From Admission The patient is a 71-year-old female who presented to the emergency department following a fall that occurred last night. She states that she was in her family room preparing to walk her dog late last night and lost her balance and fell. She landed on her left side and immediately had pain in her left hip. She was unable to get back to her feet and eventually was able to crawl to the door. Bystanders heard her banging on her door and were able to help her contact EMS. Pain is currently well controlled. Patient denies hitting her head. No loss of consciousness associated with the fall. No dizziness, lightheadedness, chest pain, dyspnea. CBC/BMP: 12/01/16 0632 11/29/16 1115 Significant Findings Last Impressions Hip X-Ray 11/30/16 0000 Signed Impressions: Service Date/Time: Wednesday, November 30, 2016 07:57 - CONCLUSION: ORIF left hip fractures. Ciro Joseph MD Hip and Pelvis X-Ray 11/29/16930 Signed Impressions: Service Date/Time: Tuesday, November 29, 2016 09:56 - CONCLUSION: Comminuted left femoral fracture. Ciro Joseph MD Chest X-Ray 11/29/16930 Signed Impressions: Service Date/Time: Tuesday, November 29, 2016 09:56 - CONCLUSION: No acute disease. Ciro Joseph MD Laboratory Tests Test 11/29/16 11/29/16 11/29/16 11/30/16 09:45 10:00 11:15 12:10 Red Blood Count 3.95 MIL/MM3 (4.00-5.30) Neutrophils (%) (Auto) 72.1 % (16.0-70.0) Monocytes (%) (Auto) 13.5 % (0.0-8.0) Monocytes # (Auto) 1.3 TH/MM3 (0-0.9) Activated Partial 21.9 SEC Thromboplast Time (24.3-30.1) Urine Ketones TRACE mg/dL (NEG) Estimat Glomerular Filtration 80 ML/MIN (>89) Rate Calcium Level 8.3 MG/DL (8.5-10.1) 25-Hydroxy Vitamin D Total 17.8 ng/ML (30-100) Test 12/01/16 06:32 Hemoglobin 9.6 GM/DL (11.6-15.3) Hematocrit 28.1 % (35.0-46.0) PE at Discharge General: Thin elderly female in no acute distress. Sitting up in a chair. Heart: Regular rate and rhythm. No murmur. Lungs: Clear to auscultation bilaterally. No wheezes, rales, or rhonchi. Breathing is nonlabored. Abdomen: Soft, nontender, nondistended. Extremities: No lower extremity edema. Psych: Alert and oriented. Pt update on day of discharge Patient states pain is controlled. She is adamant that she go home today with home health care. She states that her friend will stay with her. She tells me she will sign out AGAINST MEDICAL ADVICE if I do not discharge her. The patient is ambulating independently today. I did observe her get up out of bed and ambulate to the bathroom with a walker independently and with good balance. Hospital Course 1. Left hip fracture status post mechanical fall: Status post left hip reduction and intramedullary nail fixation. Management per orthopedic surgery. Continue pain control, bowel regimen. Patient has been ambulating after the surgery. 2. Hypothyroidism: Continue Synthroid. 3. Postherpetic neuralgia: Patient had shingles affecting the right side of her face in 2014. She has resultant right eye blindness. Continue gabapentin for pain control. 4. Anxiety: Continue Zoloft, BuSpar. 5. DVT prophylaxis: SCDs, ESTEPHANIE calderón. Lovenox. Patient insisted on being discharged home with [facility] today. I observed the patient transfer independently from bed, to use walker to go to bathroom. I insisted the patient have her male friend and nextdoor neighbor stay with her tonight and instructed patient not to get up without assistance from him; spoke with the friend via phone who agreed. Pt Condition on Discharge: Stable Discharge Disposition: Disch w/ Home Health Serv Discharge Time: > 30 minutes Discharge Instructions Activities you can perform: Weight Bearing as Jesus Manuel Enedina Jolly MD Dec 01, 2016 17:43
[2016-12-02] MEDS ORDERED: ENOXAPARIN SODIUM 30 MG/0.3 ML SYRINGE SQ SCH (08:00)
== END 2016-12-01 18:51 | disposition home health service (06) | DRG 481 ==
LOC: NEPE 09:17 → NEDA 10:46 → NEPFCDU 13:45 → N06B 23:05
PROVIDERS: ADMIT Family Medicine; ATTEND Family Medicine
PROC: 0QS7XZZ Reposition Left Upper Femur, External Approach (ICD-10-PCS; 2016-11-30)
PROC: 0QH706Z Insertion of Intramedullary Internal Fixation Device into Left Upper Femur, Open Approach (ICD-10-PCS; principal; 2016-11-30 07:15)
DX: S72.142A Displaced intertrochanteric fracture of left femur, initial encounter for closed fracture (principal); B02.29 Other postherpetic nervous system involvement; E03.9 Hypothyroidism, unspecified; H54.41 Blindness, right eye, normal vision left eye; W01.0XXA Fall on same level from slipping, tripping and stumbling without subsequent striking against object, initial encounter; Z87.891 Personal history of nicotine dependence; F41.9 Anxiety disorder, unspecified; M81.0 Age-related osteoporosis without current pathological fracture
CPT/HCPCS: 71010; 73502; 76000; 80053; 81001; 82306; 85014; 85018; 85025; 85610; 85730; 86850; 86900; 86901; 93005; 94664; 96374; 96375; C1713; J0131; J0690; J1100; J1580; J1650; J2250; J2270; J2370; J2405; J3010; J3370; J7030; J7050; J7613